=== PATIENT | male | born 1995 | race Caucasian/White ===

== ENCOUNTER 2020-10-19 17:11 | Emergency (ER) | payer OTHER ==
[~2020-10-19] VITALS: Ht 180.3 cm; Wt 90.7 kg
[~2020-10-19 17:11] MED LIST: AFRIN15 ML NS; PROMETHAZINE-D120 ML PO
[2020-10-19] MEDS ORDERED: NAPROSYN500 M1 PO (17:30)
[2020-10-19] MEDS ORDERED: TRAMADOL 50 MG50 MG PO ×2 (17:43→17:46)
[2020-10-19] MEDS ORDERED: NORFLEX100 MG PO (17:43)
[2020-10-19] MEDS ORDERED: MEDROLDOSEPACK PO (17:43)
[2020-10-19 18:15] VITALS: BP 129/77
== END 2020-10-19 18:15 | disposition home or self-care (01) ==
LOC: M.ERS 17:11
DX: M54.5 Low back pain (principal)